=== PATIENT | female | born 1995 | race Caucasian/White ===

== ENCOUNTER 2022-02-09 11:35 | Emergency (ER) | payer SELFPAY | END 2022-02-09 12:48 | disposition home or self-care (01) | LOC: MW.ED 11:35 | DX: L50.9 Urticaria, unspecified (principal) | CPT/HCPCS: 99283 ==

== ENCOUNTER 2022-04-16 10:55 | Emergency (ER) | payer SELFPAY ==
[2022-04-16] MEDS ORDERED: Sodium Chloride 0.9% 1,000 ML IV ONE (11:06)
[2022-04-16] MEDS ORDERED: Ondansetron 4 MG/2 ML SDV IVPUSH ONE (11:16)
[2022-04-16] MEDS ORDERED: Alum Hydro/Mag Hydro/Simeth XS 15 ML, Metoclopramide 5 MG, Lidocaine 2% 5 ML PO ONE ×3 (11:58)
[2022-04-16] MEDS ORDERED: Promethazine 25 MG/ML SDV IM ONE (12:19)
[2022-04-16 12:25] LABS: CARBON DIOXIDE,CO2 27.1 mmol/L (21.0-32.0); POTASSIUM,K 3.3 mmol/L (3.5-5.1)
[2022-04-16] MEDS ORDERED: Ketorolac 30 MG/ML SDV IVPUSH ONE (13:11)
[2022-04-16] MEDS ORDERED: Iopamidol 755 MG/ML 500 ML Multipack Bottle IVPUSH STA (16:22)
== END 2022-04-16 15:42 | disposition home or self-care (01) ==
LOC: MW.ED 10:55
DX: R10.12 Left upper quadrant pain (principal); Z79.899 Other long term (current) drug therapy
CPT/HCPCS: 36415; 74177; 80053; 80305; 81001; 81025; 83690; 85025; 96361; 96372; 96374; 96375; 99284; J1885; J2405; J2550; J7030; Q9967; A9270-GY

== ENCOUNTER 2024-03-04 20:40 | Emergency (ER) | payer OTHER | END 2024-03-04 21:14 | disposition home or self-care (01) | LOC: MW.ED 20:40 | DX: O99.891 Other specified diseases and conditions complicating pregnancy (principal); R51.9 Headache, unspecified; Z79.899 Other long term (current) drug therapy; Z3A.00 Weeks of gestation of pregnancy not specified; Z75.8 Other problems related to medical facilities and other health care; V49.59XA Passenger injured in collision with other motor vehicles in traffic accident, initial encounter; Y93.89 Activity, other specified | CPT/HCPCS: 99281; 99283 ==